=== PATIENT | female | born 1980 | race Caucasian/White ===

== ENCOUNTER 2017-10-18 17:00 | Outpatient (CLI) | END 2017-10-19 00:10 | disposition home or self-care (01) ==

== ENCOUNTER 2017-11-14 13:49 | Outpatient (CLI) | END 2017-11-14 18:29 | disposition home or self-care (01) ==

== ENCOUNTER 2017-12-12 10:18 | Emergency (ER) | END 2017-12-12 11:55 | disposition home or self-care (01) ==

== ENCOUNTER 2018-01-27 12:05 | Inpatient (IN) | END 2018-01-29 15:24 | disposition home or self-care (01) | DRG 775 ==